=== PATIENT | female | born 1955 | race Caucasian/White ===

== ENCOUNTER 2018-03-18 17:17 | Inpatient (IN) ==
--- NOTE | 2018-03-18 17:43 | Emergency Department Note ---
Disposition Clinical Impression: Chest pain Qualifiers: Chest pain type: unspecified Qualified Code(s): R07.9 - Chest pain, unspecified Disposition: Admitted As Inpatient Condition: Good Time of Disposition: 20:30 Chest Pain HPI - General Chief Complaint: ED Chest Pain Stated Complaint: chest pain Time Seen by Provider: 03/18/18 17:26 Source: patient Limitations: no limitations Vital Signs Reviewed: Yes Nursing Notes Reviewed: Yes - History of Present Illness HPI Narrative: This is a 63 year-old female with history of HTN, HLD, CVA, CAD (no stents), CHF , who awoke at 8am with squeezing left-sided chest pain, radiating to the left shoulder and neck. The carrillo has been gradually worsening over the course of the day. Associated with palpitations, dyspnea, diaphoresis, nausea, and one episode of nonbloody emesis. She denies any associated fever, cough, abdominal pain, or focal weakness. She has had a cath and found to have CAD but no stent required. She denies any history of DVT/PE. She had ASA and NTG prior to arrival. Pt complaint: chest pain Onset (ago): hour(s) (10) Duration: gradually worsening Onset: awoke with symptoms Pain Location: left chest Severity: moderate Severity scale (1-10): 9 Quality: other (squeezing) Pain Radiation: LUE, neck Improves with: nothing Worsens with: nothing Associated symptoms: Reports: nausea, vomiting (once, vomited BP med), diaphoresis, dyspnea (mild), palpitations. Denies: fever, cough, leg swelling Treatments prior to arrival chest pain: aspirin, nitroglycerin - Related Data Home Medications Medication Instructions Recorded Confirmed Carvedilol [Coreg] 6.25 mg PO BIDWM 03/18/18 03/18/18 Isosorbide MONOnitrate (24 HR) 30 mg PO DAILY 03/18/18 03/18/18 [Imdur] Lisinopril [Zestril] 10 mg PO DAILY 03/18/18 03/18/18 Potassium Chloride [Klor-Con 10] 10 meq PO DAILY 03/18/18 03/18/18 Pravastatin Sodium [Pravachol] 80 mg PO HS 03/18/18 03/18/18 cloNIDine HCl [Clonidine HCl] 0.2 mg PO TID 03/18/18 03/18/18 Allergies Allergy/AdvReac Type Severity Reaction Status Date / Time acetaminophen [From Tylenol] Allergy Rash Verified 03/18/18 20:47 butorphanol Allergy Hives Verified 03/18/18 20:47 diphenhydramine Allergy Hives Verified 03/18/18 20:47 [From Benadryl] ketorolac [From Toradol] Allergy Hives Verified 03/18/18 20:47 meperidine [From Demerol] Allergy Hives Verified 03/18/18 20:47 metoclopramide [From Reglan] Allergy Hives Verified 03/18/18 20:47 morphine Allergy Hives Verified 03/18/18 20:47 pentazocine Allergy Hives Verified 03/18/18 20:47 Sulfa (Sulfonamide Allergy Hives Verified 03/18/18 20:47 Antibiotics) tramadol Allergy Hypertensio Verified 03/18/18 20:47 n prochlorperazine AdvReac Hives Verified 03/18/18 20:47 [From Compazine] All systems ED: reviewed and negative except as stated. Constitutional: Denies: fever Cardiovascular: Reports: as per HPI, chest pain, palpitations. Denies: syncope Respiratory: Reports: dyspnea. Denies: cough Neurological: Denies: headache, weakness, numbness, paresthesias Chest Pain PMH - Past Medical History Medical history: Reports: CVA, GERD, hyperlipidemia, hypertension, kidney stones , TIA Surgical history: Reports: cholecystectomy, hysterectomy, knee replacement, other Psychiatric history: Reports: anxiety, depression [employer] TECH[employer]ICAL OFFICER history: Reports: no FORE[employer] TECHNICAL OFFICER history - Social History Smoking Status: Never smoker Alcohol use: Reports: none Drug use: Reports: none Physical Exam - General Limitations: no limitations General appearance: alert, in no apparent distress - Head Head exam: atraumatic, normocephalic - Eye Eye exam: Present: normal appearance - Neck Neck exam: Present: normal inspection - Respiratory Respiratory exam: Present: normal lung sounds bilaterally. Absent: respiratory distress, wheezes - Cardiovascular Cardiovascular exam: Present: regular rate, normal rhythm, normal heart sounds - Abdominal Exam Abdominal exam: Present: soft, Non-Tender. Absent: distention - Extremities Exam Extremities exam: Present: other (bilateral knee replacements, mild swelling and erythema of the right knee/leg) - Neurological Exam Neurological exam: Present: alert, oriented X3, CN II-XII intact. Absent: motor sensory deficit - Psychiatric Psychiatric exam: Present: anxious - Skin Skin exam: Present: warm, dry, intact. Absent: cyanosis, diaphoresis, pallor Course - Reevaluation(s) Reevaluation #1: On recheck, patient remains stable, comfortable-appearing. Discussed test results with her and she is in agreement with obs for rule-out. Kallie hospitalist. Time: 20:28 - Consultations Consultation #1: Discussed case with Dr. Mercedes, who has accepted patient for admit. Time: 20:40 Vital Signs Temperature 98.5 F 03/18/18 17:24 Pulse Rate 109 03/18/18 17:24 Respiratory Rate 16 03/18/18 17:24 Blood Pressure 220/126 03/18/18 17:24 O2 Sat by Pulse Oximetry 99 03/18/18 17:24 Temperature 97.9 F 03/18/18 22:04 Pulse Rate 74 03/18/18 22:04 Respiratory Rate 18 03/18/18 22:04 Blood Pressure 187/97 03/18/18 22:04 O2 Sat by Pulse Oximetry 96 03/18/18 22:04 Oxygen Delivery Oxygen Delivery Room Air Chest Pain - Lab Data Lab results reviewed: Yes I reviewed the patient's lab results. Result diagrams: 03/19/18 00:14 03/19/18 00:14 Lab Results 03/18/18 03/18/18 03/18/18 Range/Units 18:22 18:22 18:22 WBC (4.3-11.1) K/mcL RBC (3.82-4.97) M/mcL Hgb (11.5-15.4) g/dL Hct (35.3-44.9) % MCV (83.0-100.0) fL MCH (28.0-33.3) pg MCHC (31.6-35.5) g/dL RDW (11.5-14.5) % Plt Count (140-400) K/mcL MPV (9.4-12.4) fL Immature Gran % (0-4) % Seg Neutrophils % % Lymphocytes % % Monocytes % % Eosinophils % % Basophils % % Neutrophils # (1.6-8.9) K/mcL Lymphocytes # (0.6-4.6) K/mcL Monocytes # (0.0-1.3) K/mcL Eosinophils # (0.0-0.6) K/mcL Basophils # (0.0-0.2) K/mcL PT 10.9 (9.4-12.1) Seconds INR 1.0 APTT 26.7 (26.0-36.0) Seconds D-Dimer 1856 H (0-500) ng/mLFEU Sodium (136-145) mEq/L Potassium (3.5-5.1) mEq/L Chloride (98-107) mEq/L Carbon Dioxide (23-29) mEq/L BUN (8-23) mg/dL Creatinine (0.60-1.20) mg/dL Est GFR ( Amer) (> 60) Est GFR (Non-Af Amer) (> 60) BUN/Creatinine Ratio (6-26) Glucose (70-105) mg/dL Calculated Osmolality (280-300) Calcium (8.6-10.3) mg/dL Total Bilirubin 0.4 (0.3-1.0) mg/dL Direct Bilirubin 0.0 (0.0-0.2) mg/dL Indirect Bilirubin 0.4 (0.0-1.2) mg/dL AST 17 (13-39) Units/L ALT 15 (7-52) Units/L Alkaline Phosphatase 126 H (34-104) Units/L Troponin I (< 0.04) ng/mL B-Natriuretic Peptide 123 H (Less than 100) pg/mL Serum Total Protein 7.8 (6.4-8.9) g/dL Albumin 4.2 (3.5-5.7) g/dL Globulin 3.6 H (2.4-3.5) g/dL Albumin/Globulin Ratio 1.2 (1.1-2.2) Lipase 11 (11-82) Units/L 03/18/18 03/18/18 Range/Units 18:22 18:22 WBC 6.9 (4.3-11.1) K/mcL RBC 4.75 (3.82-4.97) M/mcL Hgb 13.8 (11.5-15.4) g/dL Hct 41.0 (35.3-44.9) % MCV 86.3 (83.0-100.0) fL MCH 29.1 (28.0-33.3) pg MCHC 33.7 (31.6-35.5) g/dL RDW 13.7 (11.5-14.5) % Plt Count 284 (140-400) K/mcL MPV 10.3 (9.4-12.4) fL Immature Gran % 0.3 (0-4) % Seg Neutrophils % 57.4 % Lymphocytes % 33.2 % Monocytes % 6.1 % Eosinophils % 2.7 % Basophils % 0.3 % Neutrophils # 4.0 (1.6-8.9) K/mcL Lymphocytes # 2.3 (0.6-4.6) K/mcL Monocytes # 0.4 (0.0-1.3) K/mcL Eosinophils # 0.2 (0.0-0.6) K/mcL Basophils # 0.0 (0.0-0.2) K/mcL PT (9.4-12.1) Seconds INR APTT (26.0-36.0) Seconds D-Dimer (0-500) ng/mLFEU Sodium 142 (136-145) mEq/L Potassium 3.2 L (3.5-5.1) mEq/L Chloride 108 H (98-107) mEq/L Carbon Dioxide 23 (23-29) mEq/L BUN 12 (8-23) mg/dL Creatinine 0.73 (0.60-1.20) mg/dL Est GFR ( Amer) > 60 (> 60) Est GFR (Non-Af Amer) > 60 (> 60) BUN/Creatinine Ratio 16 (6-26) Glucose 91 (70-105) mg/dL Calculated Osmolality 293 (280-300) Calcium 9.7 (8.6-10.3) mg/dL Total Bilirubin (0.3-1.0) mg/dL Direct Bilirubin (0.0-0.2) mg/dL Indirect Bilirubin (0.0-1.2) mg/dL AST (13-39) Units/L ALT (7-52) Units/L Alkaline Phosphatase (34-104) Units/L Troponin I < 0.03 (< 0.04) ng/mL B-Natriuretic Peptide (Less than 100) pg/mL Serum Total Protein (6.4-8.9) g/dL Albumin (3.5-5.7) g/dL Globulin (2.4-3.5) g/dL Albumin/Globulin Ratio (1.1-2.2) Lipase (11-82) Units/L - Radiology Data Radiology results reviewed: Yes I reviewed the patient's radiology results. CT/CT angio chest IMPRESSION: No evidence of pulmonary embolism. Opacities throughout both lungs. This may reflect air trapping, mild edema or less likely pneumonia. Cardiomegaly. - EKG Data EKG attestation: Yes I reviewed and interpreted this EKG. EKG shows normal: sinus rhythm Rate: tachycardia [place]/QRS: normal Voltage: increased voltage throughout Interpretation: nonspecific ST-T wave changes Heart Score - Score History: Moderately Suspicious EKG: Non Specific repolarisation Disturbance Age: 45-65 Risk Factors: Equal/Greater than 3 risk factor or history of atherosclerotic disease Troponin: Less than normal limit HEART Score Total: 5
[2018-03-18] MEDS ORDERED: Nitroglycerin 1 INCH/GM PACKET TP ONE (18:05)
[2018-03-18] MEDS ORDERED: Ondansetron ODT 4 MG TAB.RAPDIS SL ONE (18:06)
[2018-03-18] MEDS ORDERED: Nitroglycerin 0.4 MG TAB.SUBL SL ONE (18:06)
[2018-03-18] MEDS ORDERED: *HR* FentaNYL (PF) 100 MCG/2 ML VIAL IVP ONE (18:31)
[2018-03-18 18:40] LABS: Basophils % 0.3 %; Eosinophils # 0.2 K/mcL (0.0-0.6); Eosinophils % 2.7 %; Hemoglobin 13.8 g/dL (11.5-15.4); Immature Granulocytes % 0.3 % (0-4); Lymphocytes # 2.3 K/mcL (0.6-4.6); Lymphocytes % 33.2 %; Mean Corpuscular HGB Conc 33.7 g/dL (31.6-35.5); Mean Corpuscular Hemoglobin 29.1 pg (28.0-33.3); Mean Corpuscular Volume 86.3 fL (83.0-100.0); Mean Platelet Volume 10.3 fL (9.4-12.4); Monocytes # 0.4 K/mcL (0.0-1.3); Monocytes % 6.1 %; Platelet Count 284 K/mcL (140-400); Red Blood Count 4.75 M/mcL (3.82-4.97); Red Cell Distribution Width 13.7 % (11.5-14.5); Segmented Neutrophils % 57.4 %
[2018-03-18 18:46] LABS: Prothrombin Time 10.9 Seconds (9.4-12.1)
[2018-03-18 18:49] LABS: Activated Partial Thrombo Time 26.7 Seconds (26.0-36.0)
[2018-03-18 18:58] LABS: Albumin 4.2 g/dL (3.5-5.7); Albumin/Globulin Ratio 1.2 (1.1-2.2); Bilirubin,Indirect 0.4 mg/dL (0.0-1.2); Bilirubin,Total 0.4 mg/dL (0.3-1.0); Globulin 3.6 g/dL (2.4-3.5); Total Protein 7.8 g/dL (6.4-8.9)
[2018-03-18 19:01] LABS: Troponin I < 0.03 ng/mL (< 0.04)
[2018-03-18 19:08] LABS: BUN/Creatinine Ratio 16 (6-26); Blood Urea Nitrogen 12 mg/dL (8-23); Calcium 9.7 mg/dL (8.6-10.3); Carbon Dioxide 23 mEq/L (23-29); Chloride 108 mEq/L (98-107); Glucose 91 mg/dL (70-105); Osmolality,Calculated 293 (280-300); Potassium 3.2 mEq/L (3.5-5.1); Sodium 142 mEq/L (136-145); eGFR For African Americans > 60 (> 60); eGFR For Non-African Americans > 60 (> 60)
[2018-03-18] MEDS ORDERED: Isovue-370 500 ML INFUS..BTL IV ONE (19:28)
[2018-03-18] MEDS ORDERED: Potassium Chloride Elixir 20 MEQ/15 ML UDC PO ONE (19:28)
[2018-03-18] MEDS ORDERED: *HR* Nalbuphine 10 MG/ML AMPUL IVP STA (20:29)
[2018-03-18] MEDS ORDERED: *HR* Labetalol 20 MG/4 ML SYRINGE IVP ONE (21:16)
[2018-03-18 22:13] VITALS: BP 187/97
--- NOTE | 2018-03-18 23:26 | Internal Med History&Physical ---
<Curt Chowdhury - Last Filed: 03/19/18 01:33> Date of Encounter: 03/19/18 Time of Encounter: 23:11 Internal Medicine - H&P: HPI Chief complaint: chest pain Admitted From: Home Plans for Post Hospital Care: Home History of present illness: Ms. Hung is a 63 year old female w/ pmh of HTN, HLD, CVA, CAD w/ no stents, CHF presents with new onset chest pain that started this morning when she woke up at 8 am. She describes the pain as sharp, 10/10, radiates to her neck, shoulder blade and arm. Prior to arrival she took ASA and NTG without relief. She's previously has had pain like this about 15 years ago when she had "congestive heart failure". Patient states that her pain was relieved when she received nubain in the ED. Patient denies diaphoresis, SOB, orthopnea, PND, edema. She does admit to having stomach pains that started on March 08 which has been previously been evaluated and identified as "bowel stuck in her mesh." with a planned take down in the near future not at [place]. Upon chart review, patient has had multiple ED visits in which she has requested dilaudid. During encounter, patient states that she was aware of the current shortage and requested nubain and stated "it's a weak narcotic" and further proceeded to ask about other pain medications. Past Med Surg Social Fam HX - Past Medical History Medical history: CVA, GERD, hyperlipidemia, hypertension, kidney stones, TIA Psychiatric history: anxiety, depression - Past Surgical History Surgical History: cholecystectomy, hysterectomy, knee replacement, other - Social History Smoking Status: Never smoker Smokeless Tobacco Status: No Alcohol use: none Drug use: none Internal Medicine - H&P: Meds Carvedilol [Coreg] 6.25 mg PO BIDWM 03/18/18 [History] Isosorbide MONOnitrate (24 HR) [Imdur] 30 mg PO DAILY 03/18/18 [History] Lisinopril [Zestril] 10 mg PO DAILY 03/18/18 [History] Potassium Chloride [Klor-Con 10] 10 meq PO DAILY 03/18/18 [History] Pravastatin Sodium [Pravachol] 80 mg PO HS 03/18/18 [History] cloNIDine HCl [Clonidine HCl] 0.2 mg PO TID 03/18/18 [History] 3 Allergy/AdvReac Type Severity Reaction Status Date / Time acetaminophen [From Tylenol] Allergy Rash Verified 03/18/18 20:47 butorphanol Allergy Hives Verified 03/18/18 20:47 diphenhydramine Allergy Hives Verified 03/18/18 20:47 [From Benadryl] ketorolac [From Toradol] Allergy Hives Verified 03/18/18 20:47 meperidine [From Demerol] Allergy Hives Verified 03/18/18 20:47 metoclopramide [From Reglan] Allergy Hives Verified 03/18/18 20:47 morphine Allergy Hives Verified 03/18/18 20:47 pentazocine Allergy Hives Verified 03/18/18 20:47 Sulfa (Sulfonamide Allergy Hives Verified 03/18/18 20:47 Antibiotics) tramadol Allergy Hypertensio Verified 03/18/18 20:47 n prochlorperazine AdvReac Hives Verified 03/18/18 20:47 [From Compazine] All Systems PM: A 10-system review of systems was performed and is negative for pertinent findings except as documented above in the HPI. - Constitutional Constitutional: no anorexia, no chills, no excessive sweating, no fever(s), no night sweats, no weight gain, no weight loss - EENT Eyes: no change in vision, no discharge, no pain, no photophobia Ears: no ear discharge, no ear pain, no tinnitus Nose, mouth and throat: no dysphagia, no nasal discharge, no neck pain, no sore throat - Cardiovascular Cardiovascular ROS IM: no chest pain, no claudication, no diaphoresis, no dyspnea, no dyspnea on exertion, no edema, no irregular heart rhythm, no lightheadedness, no orthopnea, no palpitations, no paroxysmal nocturnal dyspnea , no syncope - Respiratory Respiratory: no cough, no dyspnea, no hemoptysis, no dyspnea on exertion, no wheezing, no pain on inspiration, no excessive phlegm production - Gastrointestinal Gastrointestinal: no abdominal pain, no coffee ground emesis, no diarrhea, no hematemesis, no hematochezia, no melena, no nausea, no vomiting - Genitourinary Genitourinary: no change in urinary stream, no dysuria, no flank pain, no hematuria - Musculoskeletal Musculoskeletal ROS IM: no numbness, no tingling - Integumentary Integumentary IM: no rash, no unusual bruising - Neurological Neurological ROS: no abnormal speech, no behavioral changes, no burning sensations, no confusion, no convulsions, no disequilibrium, no dizziness, no focal weakness, no headache(s), no lack of coordination, no loss of vision, no memory loss, no numbness, no radicular pain, no restless legs, no tingling, no tremor(s), no vertigo, no weakness - Hematologic/Lymphatic Hematologic/Lymphatic: no easy bruising - Constitutional Vitals: Temp Pulse Resp BP Pulse Ox 97.9 F 74 18 187/97 96 03/18/18 22:04 03/18/18 22:04 03/18/18 22:04 03/18/18 22:04 03/18/18 22:04 General appearance: Present: A&O X 3, morbidly obese, no acute distress, answers questions appropriately - Head Head exam: Present: atraumatic, normocephalic - Eye Eye exam: Present: PERRL, conjuntiva pink, sclera anicteric Pupils: Present: PERRL - Neck Neck exam general surgery: Present: supple, trachea midline. Absent: lymphadenopathy - Respiratory Respiratory exam: Present: CTAB. Absent: accessory muscle use, rales, rhonchi, wheezes - Cardiovascular Cardiovascular exam: Present: RRR. Absent: bradycardia, diastolic murmur, distant heart sounds, gallop, irregular rhythm, JVD, rubs, systolic murmur, tachycardia - GI/Abdominal GI/Abdominal exam: Present: normal bowel sounds, soft, no peritoneal signs. Absent: distended, firm, guarding, hernia, hepatomegaly, pulsatile mass, rebound , rigid, splenomegaly, tenderness - Extremities Exam Extremities exam: Present: warm, radial pulses palpable and symmetrical. Absent : calf tenderness, cyanotic, pedal edema - Neurological Exam Neurological exam: Present: alert, CN II-XII intact, oriented X3, no focal deficits. Absent: pronater drift, facial droop, speech deficit - Skin Skin exam: Present: dry, intact Internal Med - H&P Results - Labs CBC & Chem 7: 03/19/18 00:14 03/19/18 00:14 - Assessment and plan (1) Chest pain Current Visit: Yes Status: Resolved Assessment and plan: stable/unstable angina vs possible GI etiology vs very suspicious for malingering vs very unlikely PE. Patient has self reports hx of ACS w/ no stents placed. EKG shows sinus tachy w/ no ischemic changes. Trop negative x1 , and BNP 123. Will further workup for CAD, but expect to have further workup with outpatient stress test. ZAYRA score 3 for ASA use, CAD risk factors DM, HTN , HLD, fmh of CAD, severe angina. HEART score 4 (moderate suspicious, age, risk factors). CXR showed no acute cardiopulmonary process. OAR[place] report shows that patient has had prescriptions from 40 providers since 2016. Patient was worked up for PE. EKG identified Sinus tachycardia, patient was moderate risk for PE and d-dimer came back elevated. CTA was ordered and did not identify PE. - serial trops - BP control Qualifiers: Qualified Code(s): R07.9 - Chest pain, unspecified (2) Hypertension Current Visit: Yes Status: Acute Assessment and plan: Patient presented w/ BP of SBP 220. Patient was given labetalol in the ED and BP responded. Per chart review patient's baseline SBP is 175- 200. Will restart home BP meds and closely monitor. Qualifiers: Qualified Code(s): I10 - Essential (primary) hypertension (3) CVA (cerebral vascular accident) Current Visit: Yes Status: Acute Assessment and plan: Patient self reports hx of CVA w/ no neurological deficits besides seizure-like activity. Qualifiers: Qualified Code(s): I63.9 - Cerebral infarction, unspecified (4) CHF (congestive heart failure) Current Visit: Yes Status: Acute Assessment and plan: Patient self reports she had congestive heart failure 15 years ago. Last known EF 65% in 2015. Patient does not currently have symptoms of CHF. Qualifiers: Qualified Code(s): I50.9 - Heart failure, unspecified (5) Morbid obesity Current Visit: Yes Status: Acute Assessment and plan: discussed benefits of weight loss with patient. Patient to follow up outpatient. (6) HLD (hyperlipidemia) Current Visit: Yes Status: Acute Assessment and plan: continue home pravastatin Qualifiers: Qualified Code(s): E78.5 - Hyperlipidemia, unspecified (7) Adhesion of intestine Current Visit: Yes Status: Acute Assessment and plan: Patient describes bowel attached to mesh that was placed during prior hysterectomy. scheduled to have take down at an outside facility. (8) DVT prophylaxis Current Visit: Yes Status: Acute Assessment and plan: heparin sq (9) Hypokalemia Current Visit: Yes Status: Acute Assessment and plan: mildly decrease on admission. replaced with K+ PO. will recheck in the AM - Time Spent With Patient Total time spent is greater than 50% in coordination of care (as documented) at patient's floor/unit and/or counseling patient: <Justin Gannon - Last Filed: 03/19/18 02:24> Date of Encounter: 03/19/18 Time of Encounter: 01:40 - Constitutional Vitals: Temp Pulse Resp BP Pulse Ox 97.9 F 74 18 187/97 96 03/18/18 22:04 03/18/18 22:04 03/18/18 22:04 03/18/18 22:04 03/18/18 22:04 General appearance: Present: A&O X 3 - Respiratory Respiratory exam: Present: CTAB. Absent: rales, rhonchi, wheezes - Cardiovascular Cardiovascular exam: Present: RRR, +S1, +S2. Absent: diastolic murmur, systolic murmur Internal Med - H&P Results - Labs CBC & Chem 7: 03/19/18 00:14 03/19/18 00:14 Labs: Short CBC 03/19/18 Range/Units 00:14 WBC 6.5 (4.3-11.1) K/mcL Hgb 12.6 (11.5-15.4) g/dL Hct 38.9 (35.3-44.9) % Plt Count 244 (140-400) K/mcL BMP 03/19/18 00:14 Sodium 142 Potassium 3.4 L Chloride 108 H Carbon Dioxide 25 BUN 12 Creatinine 0.71 Glucose 124 H Calcium 9.3 Cardiac Enzymes 03/19/18 Range/Units 00:14 Troponin I 0.03 (< 0.04) ng/mL - Attending Attestation I discussed the [facility], past medical history, review of systems, lab data, and exam findings with Dr. Tristan. I also reviewed the [place]ARRS report on this patient detailing 38 different prescribers of controlled substances in the last 2 years. I then saw and examined the patient independently. Throughout the whole interview and exam, patient was quite confrontational, hostile, and demanding IV narcotics. She also appeared to be "doctor shopping and hospital shopping". I questioned her about her OARRS report and all the different controlled substance prescriptions she has had the last 2 years. She states that someone stole her identity and was receiving prescriptions in her behalf. Patient reports she lives in [place], [place] and will not go to her local hospital because "they try to kill me there". She also states she will not go to [facility] in [place] because "they try to kill me there too". She has gone through multiple different hospitals the last few months, including [place], [place], [place], [place], [place] and others she would not elaborate on. I offered to hospitalize her and work her up for cardiac history and chest pain. She questioned which kind of narcotic I would prescribe her. I offered only oral narcotics along with nitroglycerin as needed. She refused and demanded I give her IV narcotics. I informed her of the IV narcotics shortage and that we are restrained from using such medications and that they were not indicated in her setting at this time. She was frustrated and refused to stay. She therefore signed out AGAINST MEDICAL ADVICE and left the hospital premises. I talked to her and her at length -- explaining to her that she warranted cardiac workup and control of her blood pressure. I informed her that if she left AGAINST MEDICAL ADVICE, she would be at risk for stroke, heart attack, kidney failure, and/or . She voiced understanding and left the hospital. - Assessment and plan (1) Chest pain Current Visit: Yes Status: Resolved Qualifiers: Qualified Code(s): R07.9 - Chest pain, unspecified (2) CVA (cerebral vascular accident) Current Visit: Yes Status: Acute Qualifiers: Qualified Code(s): I63.9 - Cerebral infarction, unspecified (3) Hypertension Current Visit: Yes Status: Acute Qualifiers: Qualified Code(s): I10 - Essential (primary) hypertension (4) CHF (congestive heart failure) Current Visit: Yes Status: Acute Qualifiers: Qualified Code(s): I50.9 - Heart failure, unspecified (5) Morbid obesity Current Visit: Yes Status: Acute (6) HLD (hyperlipidemia) Current Visit: Yes Status: Acute Qualifiers: Qualified Code(s): E78.5 - Hyperlipidemia, unspecified (7) Adhesion of intestine Current Visit: Yes Status: Acute (8) DVT prophylaxis Current Visit: Yes Status: Acute (9) Hypokalemia Current Visit: Yes Status: Acute - Time Spent With Patient Total time spent is greater than 50% in coordination of care (as documented) at patient's floor/unit and/or counseling patient:
[2018-03-18] MEDS ORDERED: Naloxone 0.4 MG/ML INJ IVP PRN (23:52)
[2018-03-19 00:27] LABS: Hematocrit 38.9 % (35.3-44.9); Hemoglobin 12.6 g/dL (11.5-15.4); Mean Corpuscular HGB Conc 32.4 g/dL (31.6-35.5); Mean Corpuscular Hemoglobin 28.3 pg (28.0-33.3); Mean Corpuscular Volume 87.4 fL (83.0-100.0); Mean Platelet Volume 10.8 fL (9.4-12.4); Platelet Count 244 K/mcL (140-400); Red Blood Count 4.45 M/mcL (3.82-4.97); Red Cell Distribution Width 13.9 % (11.5-14.5)
[2018-03-19 00:48] LABS: BUN/Creatinine Ratio 17 (6-26); Blood Urea Nitrogen 12 mg/dL (8-23); Calcium 9.3 mg/dL (8.6-10.3); Carbon Dioxide 25 mEq/L (23-29); Chloride 108 mEq/L (98-107); Chol/HDL Ratio 5.5 (0-4.9); Cholesterol 225 mg/dL (< 200); Glucose 124 mg/dL (70-105); HDL Cholesterol 41 mg/dL (40-59); LDL Cholesterol,Calculated 157 mg/dL (0-99); Magnesium 1.9 mg/dL (1.6-2.6); Osmolality,Calculated 295 (280-300); Potassium 3.4 mEq/L (3.5-5.1); Sodium 142 mEq/L (136-145); Triglycerides 136 mg/dL (< 150); eGFR For African Americans > 60 (> 60); eGFR For Non-African Americans > 60 (> 60)
[2018-03-19] MEDS ORDERED: *HR* Heparin 5,000 UNIT/ML VIAL SQ SCH (06:00)
[2018-03-19] MEDS ORDERED: cloNIDine HCl 0.1 MG TABLET PO SCH (09:00)
[2018-03-19] MEDS ORDERED: Isosorbide MONOnitrate (24 HR) 30 MG TAB.ER.24H PO SCH (09:00)
--- NOTE | 2018-03-21 15:29 | Electrocardiograph Report ---
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
== END 2018-03-19 01:10 | disposition left against medical advice (07) | DRG 313 ==
LOC: EMEROO 17:17 → 3BNU 17:17
PROVIDERS: ADMIT Pediatrics; ATTEND Pediatrics